=== PATIENT | female | born 1965 | race Caucasian/White ===

== ENCOUNTER → 2016-11-20 | Outpatient (CLI) | payer BC ==
--- NOTE | 2016-11-20 12:19 | XR ---
EXAMINATION TYPE: XR hand complete RT DATE OF EXAM: 11/20/2016 11:31 AM CLINICAL HISTORY: Right hand pain worse near base of thumb TECHNIQUE: Frontal, lateral and oblique images of the right hand are obtained. COMPARISON: None. FINDINGS: There is no acute fracture/dislocation evident in the right hand. Tiny ossific densities n ear ulnar styloid could reflect product of heterotopic ossification. The joint spaces in the right ron nd appear within normal limits. The overlying soft tissue appears unremarkable. IMPRESSION: Unremarkable 3 views of right hand.
== END | disposition home or self-care (01) ==
LOC: RADXRMAIN 11:16
PROVIDERS: ATTEND Family Medicine
DX: M79.641 Pain in right hand (principal)

== ENCOUNTER → 2018-02-17 | Outpatient (CLI) | payer BC ==
--- NOTE | 2018-02-17 10:30 | CT ---
EXAMINATION TYPE: CT sinus wo con DATE OF EXAM: 02/17/2018 COMPARISON: NONE HISTORY: Chronic sinusitis per order. Nasal congestion for 8 months with headaches per patient. CT DLP: 551.6 mGycm. Automated Exposure Control for Dose Reduction was Utilized. TECHNIQUE: CT scan of the sinuses is performed without contrast, axial images are obtained, coronal r eformatted images are also reviewed. FINDINGS: There is mild to moderate mucosal thickening in the inferior right maxillary sinus. Remaind er paranasal sinuses are clear The ostiomeatal complex is patent bilaterally on the coronal images. There is right-sided narrowing due to antral mucosal thickening however. Visualized portion of mastoid air cells show no abnormal opacification. The globes are intact bilate rally. Visualized portion of brain parenchyma is unremarkable. IMPRESSION: Chronic right maxillary sinus disease. No acute sinusitis.
== END | disposition home or self-care (01) ==
LOC: RADCTMAIN 09:40
PROVIDERS: ATTEND Otolaryngology
DX: J32.0 Chronic maxillary sinusitis (principal)
CPT/HCPCS: 70486

== ENCOUNTER 2018-04-24 06:45 | Day surgery (SDC) | payer BC ==
[2018-04-21 09:40] VITALS: BMI 30.2
--- NOTE | 2018-04-23 17:50 | P.GSHP ---
History of Present Illness H&P Date: 04/24/18 CHIEF COMPLAINT: Colon screen HISTORY OF PRESENT ILLNESS: The patient is a 52-year-old female who presents for colon screen. Lower endoscopy was offered for further evaluation and management. PAST MEDICAL HISTORY: Please see list. PAST SURGICAL HISTORY: Please see list. MEDICATIONS: Please see list. ALLERGIES: Please see list. SOCIAL HISTORY: No illicit drug use FAMILY HISTORY: No reports of Crohn disease or ulcerative colitis. REVIEW OF ORGAN SYSTEMS: CONSTITUTIONAL: No reports of fevers or chills. PHYSICAL EXAM: VITAL SIGNS: Stable GENERAL: Well-developed pleasant in no acute distress. HEENT: No scleral icterus. Extraocular movements grossly intact. Moist buccal mucosa. NECK: Supple without lymphadenopathy. CHEST: Unlabored respirations. Equal bilateral excursions. CARDIOVASCULAR: Regular rate and rhythm. Distal 2+ pulses. ABDOMEN: Soft, nontender, nondistended. MUSCULOSKELETAL: No clubbing, cyanosis, or edema. ASSESSMENT: 1. Colon screen. PLAN: 1. Recommend proceeding with a lower endoscopy Past Medical History Past Medical History: GERD/Reflux Additional Past Medical History / Comment(s): seasonal allergies History of Any Multi-Drug Resistant Organisms: None Reported Past Surgical History: Orthopedic Surgery, Tubal Ligation Additional Past Surgical History / Comment(s): RT KNEE SCOPE. COLONOSCOPY. SINUS SX Past Anesthesia/Blood Transfusion Reactions: Motion Sickness, Postoperative Nausea & Vomiting (PONV) Smoking Status: Never smoker - Past Family History Father Family Medical History: Cancer Mother Family Medical History: Cancer Sister(s) Family Medical History: Cancer Medications and Allergies Home Medications Medication Instructions Recorded Confirmed Type Levocetirizine Dihydrochloride 5 mg PO DAILY 04/21/18 04/21/18 History Pantoprazole [Protonix] 40 mg PO DAILY PRN 04/21/18 04/21/18 History Allergies Allergy/AdvReac Type Severity Reaction Status Date / Time wheat AdvReac Mild headache, Verified 04/21/18 09:31 bloating, feeling full blueberry AdvReac headache, Verified 04/21/18 09:31 bloating, feeling full Milk Containing Products AdvReac headache, Verified 04/21/18 09:31 [Dairy] bloating, feeling full
[~2018-04-24 06:45] MED LIST: LACTATED RINGERS 1,000 ML IV SCH; LIDOCAINE 1% 20 ML VIAL (10MG/ML) FOR IV START INTRADERMA PRN
[2018-04-24 07:20] VITALS: RESP 18; TEMP 98
[2018-04-24] MEDS ORDERED: LACTATED RINGERS 1,000 ML IV ONE ×2 (07:22)
[2018-04-24] MEDS ORDERED: LIDOCAINE 1% INJ 10MG/ML (20 ML MDV) ONE (07:32)
[2018-04-24] MEDS ORDERED: PROPOFOL 10 MG/ML 20 ML VIAL IV ONE (07:32)
--- NOTE | 2018-04-24 07:53 | P.PCN ---
Date of Procedure: 04/24/18 Description of Procedure: PREOPERATIVE DIAGNOSIS: Colonoscopy screening. Family history of gastrointestinal malignancy POSTOPERATIVE DIAGNOSIS: Colonoscopy screening. Family history of gastrointestinal malignancy External hemorrhoids. OPERATION: Colonoscopy to the ileocecal valve and appendiceal orifice. SURGEON: Sonia Thorne MD. ANESTHESIA: MAC. INDICATIONS: The patient is a 52-year-old female who presents for colonoscopy screening. Benefits and risks were described and informed consent was obtained. DESCRIPTION OF PROCEDURE: The patient had undergone Gatorade, MiraLAX and Dulcolax prep. He had been brought into the operating room and laid in the left lateral decubitus position. After adequate intravenous sedation, the rectum was examined with 2% lidocaine jelly. External hemorrhoids were encountered. The rectal tone was within normal limits. No lesions were palpated in the rectal vault. An Olympus colonoscope was advanced until the ileocecal valve and appendiceal orifice were clearly viewed. The prep was excellent with clear visualization of the mucosal folds. The scope was removed with visualization of each mucosal fold. No scattered diverticulosis was encountered. No colonic polyps were found. No evidence of focal colitis was found. Retroflexion of the scope demonstrated grade 2 internal hemorrhoids without active bleeding or inflammation. The colon was desufflated. The patient had tolerated the procedure well. Withdrawal time was over 6 minutes. FINDINGS: Internal hemorrhoids, grade 2 External prolapsed hemorrhoids, grade 3 No arteriovenous malformations. No adenomatous polyps. No focal colitis. RECOMMENDATIONS: Lower endoscopy in 5 years, 2022, with family history of colon polyps or cancer. Plan - Discharge Summary New Discharge Prescriptions: No Action Pantoprazole [Protonix] 40 mg PO DAILY PRN PRN Reason: REFLUX Levocetirizine Dihydrochloride 5 mg PO DAILY Discharge Medication List Levocetirizine Dihydrochloride 5 mg PO DAILY 04/21/18 [History] Pantoprazole [Protonix] 40 mg PO DAILY PRN 04/21/18 [History]
[2018-04-24 08:19] VITALS: BP 132/87; PULSE 59
== END 2018-04-24 08:44 | disposition home or self-care (01) ==
LOC: ORWHC2ENDO 06:45
PROVIDERS: ATTEND Surgery Plastic and Reconstructive Surgery
DX: Z12.11 Encounter for screening for malignant neoplasm of colon (principal); K64.1 Second degree hemorrhoids; K64.4 Residual hemorrhoidal skin tags; Z80.0 Family history of malignant neoplasm of digestive organs; K21.9 Gastro-esophageal reflux disease without esophagitis; J30.2 Other seasonal allergic rhinitis; Z79.899 Other long term (current) drug therapy; Z98.51 Tubal ligation status
CPT/HCPCS: 81025; J2001; J2704; G0105

== ENCOUNTER → 2019-09-29 | Outpatient (CLI) | payer BC ==
[2019-09-30 11:18] LABS: Cow's Milk IgE Class CLASS 0; Egg White IgE <0.10 kU/L (<0.10); Peanut IgE <0.10 kU/L (<0.10); Potato IgE <0.10 kU/L (<0.10); Potato IgE Class CLASS 0; Soybean IgE <0.10 kU/L (<0.10)
== END | disposition home or self-care (01) ==
LOC: LABWHC1 09:08
PROVIDERS: ATTEND Otolaryngology
DX: J30.89 Other allergic rhinitis (principal)
CPT/HCPCS: 36415; 86003

== ENCOUNTER 2021-01-26 08:45 | Emergency (ER) | payer BC ==
[2021-01-26 08:59] VITALS: BP 117/77; PULSE 98; RESP 18; TEMP 102
[2021-01-26] MEDS ORDERED: ONDANSETRON ODT 4 MG TAB PO STA (09:23)
--- NOTE | 2021-01-26 09:24 | ED ---
URI HPI - General Chief Complaint: Upper Respiratory Infection Stated Complaint: sinus problems Time Seen by Provider: 01/26/21 09:06 Source: patient, RN notes reviewed Mode of arrival: ambulatory Limitations: no limitations - History of Present Illness Initial Comments: This a 55-year-old female presents emergency Department with chief complaint of nasal congestion. States that this started last Friday with a headache states that she just continuation of sinus congestion headaches and which she states she suffers with chronic sinus issues had surgery in the past. He's had slight cough no fevers no chills site nausea. Denies any diarrhea constipation. - Related Data Home Medications Medication Instructions Recorded Confirmed Levocetirizine Dihydrochloride 5 mg PO DAILY 04/21/18 04/21/18 Pantoprazole [Protonix] 40 mg PO DAILY PRN 04/21/18 04/21/18 Allergies Allergy/AdvReac Type Severity Reaction Status Date / Time wheat AdvReac Mild headache, Verified 01/26/21 08:55 bloating, feeling full blueberry AdvReac headache, Verified 01/26/21 08:55 bloating, feeling full Milk Containing Products AdvReac headache, Verified 01/26/21 08:55 [Dairy] bloating, feeling full Review of Systems ROS Statement: Those systems with pertinent positive or pertinent negative responses have been documented in the HPI. ROS Other: All systems not noted in ROS Statement are negative. Past Medical History Past Medical History: GERD/Reflux Additional Past Medical History / Comment(s): seasonal allergies History of Any Multi-Drug Resistant Organisms: None Reported Past Surgical History: Orthopedic Surgery, Tubal Ligation Additional Past Surgical History / Comment(s): RT KNEE SCOPE. COLONOSCOPY. SINUS SX. R carpal tunnel Past Anesthesia/Blood Transfusion Reactions: Motion Sickness, Postoperative Nausea & Vomiting (PONV) Past Psychological History: No Psychological Hx Reported Smoking Status: Never smoker Past Alcohol Use History: None Reported, Rare Past Drug Use History: None Reported - Past Family History Father Family Medical History: Cancer Mother Family Medical History: Cancer Sister(s) Family Medical History: Cancer General Exam Limitations: no limitations General appearance: alert, in no apparent distress Head exam: Present: atraumatic, normocephalic, normal inspection Eye exam: Present: normal appearance, PERRL, EOMI. Absent: scleral icterus, conjunctival injection, periorbital swelling ENT exam: Present: normal exam, normal oropharynx, mucous membranes moist, TM's normal bilaterally Neck exam: Present: normal inspection, full ROM. Absent: tenderness, meningismus, lymphadenopathy Respiratory exam: Present: normal lung sounds bilaterally. Absent: respiratory distress, wheezes, rales, rhonchi, stridor Cardiovascular Exam: Present: regular rate, normal rhythm, normal heart sounds. Absent: systolic murmur, diastolic murmur, rubs, gallop, clicks Neurological exam: Present: alert Skin exam: Present: warm, dry, intact, normal color. Absent: rash Course Vital Signs 01/26/21 08:55 Temperature 102 F H Pulse Rate 98 Respiratory 18 Rate Blood Pressure 117/77 O2 Sat by Pulse 96 Oximetry Medical Decision Making - Medical Decision Making Patient is positive for covid 19, patient is currently stable patient is no signs of distress. Patient we discharged stable condition. - Lab Data Lab Results 01/26/21 Range/Units 09:22 Coronavirus (PCR) Detected A (Not Detectd) Disposition Clinical Impression: COVID-19 Disposition: HOME SELF-CARE Condition: Stable Instructions (If sedation given, give patient instructions): Coronavirus Disease 2019 (COVID-19) Additional Instructions: Please return to the Emergency Department if symptoms worsen or any other concerns. Is patient prescribed a controlled substance at d/c from ED?: No Referrals: Jorge Bear MD [Primary Care Provider] - 1-2 days Time of Disposition: 10:03
== END 2021-01-26 10:14 | disposition home or self-care (01) ==
LOC: EC 08:45
DX: U07.1 COVID-19 (principal); K21.9 Gastro-esophageal reflux disease without esophagitis
CPT/HCPCS: 87635; 99284